=== PATIENT | male | born 1990 | race African-American/Black ===

== ENCOUNTER 2020-08-05 15:51 | Emergency (ER) | payer OTHER ==
[~2020-08-05] VITALS: Ht 162.6 cm; Wt 81.4 kg
[2020-08-05 15:53] VITALS: BP 161/82
--- NOTE | 2020-08-06 06:00 | ECGEPIP ---
[facility] - ED Test Date: 2020-08-05 Pat Name: ANDREW ORTIZ Department: Room: - Gender: Male Production Technician: RADHA : 1990 Requested By: RADHA Arenas PA-C Order Number: [id number] Reading MD: Sage Weinberg Measurements Intervals [place] Rate: 48 P: 47 HI: 196 QRS: 67 QRSD: 96 T: 13 QT: 412 QTc: 368 Interpretive Statements Sinus bradycardia NONSPECIFIC T WAVE ABNORMALITY(S) NO PRIORS FOR COMPARISON Electronically Signed on 08-06-2020 6:00:20 EDT by Sage Weinberg
== END 2020-08-05 16:33 | disposition home or self-care (01) ==
LOC: M ED 15:51
DX: R07.9 Chest pain, unspecified (principal); R00.1 Bradycardia, unspecified